=== PATIENT | female | born 1960 | race Caucasian/White ===

== ENCOUNTER 2025-07-13 09:25 | Outpatient (CLI) | payer MEDICARE, OTHER | END 2025-07-13 09:26 | disposition home or self-care (01) | LOC: CSHSLEEP 09:25 | PROVIDERS: ATTEND Family Medicine | DX: F51.9 Sleep disorder not due to a substance or known physiological condition, unspecified (principal); Z86.69 Personal history of other diseases of the nervous system and sense organs; R09.02 Hypoxemia; G47.33 Obstructive sleep apnea (adult) (pediatric) | CPT/HCPCS: 95811 ==